=== PATIENT | male | born 1985 ===

== ENCOUNTER 2018-02-09 10:09 | Emergency (ER) | payer SELFPAY ==
[2018-02-09 10:41] VITALS: BP 122/68
--- NOTE | 2018-02-09 10:55 | UC ---
Ear Complaint HPI - HPI Summary HPI Summary: LEFT EAR PAIN X 2 DAYS + COLD SYMPTOMS, COUGH , CHEST CONGESTION , FEVER BODY ACHES , + NASAL CONGESTION, SORE THROAT - History of Current Complaint Chief Complaint: UCGeneralIllness Stated Complaint: COUGH,SINUS COMPLAINT Time Seen by Provider: 02/09/18 10:35 Hx Obtained From: Patient Onset/Duration: Gradual Onset, Lasting Days - 1 Severity Currently: Moderate Pain Intensity: 0 Aggravating Factors: Cold Alleviating Factors: Nothing Associated Signs/Symptoms: Positive: URI Symptoms. Negative: Hearing Loss, Foreign Body Sensation, Trauma to Ear - Allergies/Home Medications Allergies/Adverse Reactions: Allergies Allergy/AdvReac Type Severity Reaction Status Date / Time No Known Allergies Allergy Verified 02/09/18 10:41 Home Medications: Home Medications Naproxen Sodium [Aleve] 220 mg PO DAILY WITH MEAL 02/09/18 [History Confirmed ] PMH/Surg Hx/FS Hx/Imm Hx Previously Healthy: Yes - Surgical History Surgical History: Yes Surgery Procedure, Year, and Place: ear operations - scar tissue removal - Family History Known Family History: Negative: Diabetes - Social History Alcohol Use: None Substance Use Type: None Smoking Status (MU): Never Smoked Tobacco Review of Systems Constitutional: Negative Skin: Negative Eyes: Negative ENT: Sore Throat, Ear Ache, Nasal Discharge Respiratory: Cough Cardiovascular: Negative Is Patient Immunocompromised?: No All Other Systems Reviewed And Are Negative: Yes Physical Exam Triage Information Reviewed: Yes Appearance: Well-Appearing, No Pain Distress, Well-Nourished Vital Signs: Initial Vital Signs Temp 98.4 F 02/09/18 10:34 Pulse 86 02/09/18 10:34 Resp 18 02/09/18 10:34 BP 122/68 02/09/18 10:34 Pulse Ox 100 02/09/18 10:34 Vital Signs Reviewed: Yes Eye Exam: Normal Eyes: Positive: Conjunctiva Clear ENT: Positive: Normal ENT inspection, Hearing grossly normal, Pharynx normal, Nasal drainage, TM bulging - LEFT EAR, TM dull - LEFT EAR, TM red - LEFT EAR Neck: Positive: Supple, Nontender, No Lymphadenopathy Respiratory: Positive: Chest non-tender, Lungs clear, Normal breath sounds Cardiovascular: Positive: RRR, No Murmur, Pulses Normal Ear Complaint Course/Dx - Differential Dx/Diagnosis Provider Diagnoses: OTITIS MEDIA Discharge - Sign-Out/Discharge Documenting (check all that apply): Discharge - Discharge Plan Condition: Stable Disposition: HOME Prescriptions: Amoxicillin PO (*) [Amoxicillin 875 MG (*)] 875 mg PO BID #20 tab Patient Education Materials: Ear Infection (ED) Referrals: Non Staff,Doctor [Primary Care Provider] - 7 Days - Billing Disposition and Condition Condition: STABLE Disposition: HOME
== END 2018-02-09 10:59 | disposition home or self-care (01) ==
LOC: UCCORT 10:09
DX: H66.92 Otitis media, unspecified, left ear (principal)
CPT/HCPCS: 99202; G0463